=== PATIENT | female | born 1985 | race Caucasian/White ===

== ENCOUNTER 2019-02-24 15:30 | Outpatient (CLI) | payer OTHER ==
--- NOTE | 2019-02-24 17:04 | ULT ---
BILATERAL DIAGNOSTIC ULTRASOUND: INDICATIONS: Regions of pain involving the right and left breast. TECHNIQUE: [place]-scale ultrasound images were obtained of the regions of pain in the right breast and left breast . FINDINGS: Within the right breast 7 o'clock position, 6 o'clock position, and 5 o'clock position, 7 cm from the nipple, no suspicious sonographic abnormality is present. Within the left breast 7 o'clock position, 6 o'clock position, and 5 o'clock position, 7 cm from the nipple, no suspicious sonographic abnormality is seen. IMPRESSION: No suspicious sonographic abnormality is seen within the left and right breast, within the regions of pain. Will refer this patient back to the ordering clinician. Negative imaging should never deter biopsies if findings on clinical examination are suspicious. The patient was counseled on the findin gs prior to leaving the breast center. POS: OFF
== END 2019-02-24 15:31 | disposition home or self-care (01) ==
LOC: BICULT 15:30
PROVIDERS: ATTEND Advanced Practice Midwife
DX: N63.23 Unspecified lump in the left breast, lower outer quadrant (principal); N64.4 Mastodynia

== ENCOUNTER 2019-04-21 15:26 | Outpatient (CLI) | payer OTHER ==
--- NOTE | 2019-04-21 16:05 | ULT ---
THYROID ULTRASOUND: CLINICAL HISTORY: Hypothyroidism COMPARISON:None FINDINGS: Right thyroid lobe: Measures 5.6 cm. Left thyroid lobe: Measures 5.2 cm. Isthmus: Measures 2.7 mm. Nodules: No discrete thyroid nodule. Generalized heterogeneity of thyroid echotexture, without a dis crete, dominant nodule. IMPRESSION: Generalized heterogeneous echotexture and prominent volume of the thyroid gland, without discrete nod ule identified. As necessary, continued imaging follow-up may be obtained.
== END 2019-04-21 15:27 | disposition home or self-care (01) ==
LOC: BICULT 15:26
PROVIDERS: ATTEND Advanced Practice Midwife
DX: E03.9 Hypothyroidism, unspecified (principal)
CPT/HCPCS: 76536